=== PATIENT | male | born 1940 | race Asian ===

== ENCOUNTER 2018-09-24 13:15 | Emergency (ER) | payer MEDICARE ==
[~2018-09-24] VITALS: Ht 160 cm; Wt 65.8 kg
--- NOTE | 2018-09-24 13:09 | NUR ---
ED Nurse Note: registration made aware to update the pt's information
[~2018-09-24 13:15] MED LIST: COZAAR100 MG ORAL; DiphenhydrAMINE 50mg/ml Inj IVP ONE; METFORMIN HCL1000 M2 ORAL; Solu-MEDROL 125mg Inj IVP ONE; UNOBMED
--- NOTE | 2018-09-24 13:15 | Emergency Room Report ---
History of Present Illness General Chief Complaint: Allergic Reaction Source: Family Member, EMS Present Illness HPI Patient is a 78-year-old male who presented after increased generalized skin rash. Patient had taken oral Benadryl as well as oral Claritin prior to arrival. He had been given epinephrine by EMS. Patient had previous allergic reactions in the past. He was noted to have increased itchiness to the skin. Patient was noted to have diffuse hives. Allergies: Coded Allergies: Common Rubén Grass (Verified Allergy, Severe, RASH/Shortness of Breath, ) Patient History Past Medical History: see triage record Reviewed Nursing Documentation: PMH: Agreed; PSxH: Agreed Nursing Documentation-PMH Past Medical History: No History, Except For Hx Hypertension: Yes Hx Diabetes: Yes Review of Systems All Other Systems: negative except mentioned in HPI Physical Exam Vital Signs Date Time Temp Pulse Resp B/P (MAP) Pulse Ox O2 Delivery O2 Flow Rate FiO2 09/24/18 13:02 97.2 88 18 111/76 100 Venturi Mask 6.0 Sp02 EP Interpretation: reviewed, normal General Appearance: normal inspection, well appearing, alert Head: atraumatic ENT: normal ENT inspection, hearing grossly normal, normal voice Neck: normal inspection, full range of motion, supple, no bony tend Respiratory: normal inspection, lungs clear, normal breath sounds, no respiratory distress, no retraction, no wheezing Cardiovascular #1: regular rate, rhythm, no edema Gastrointestinal: normal inspection, normal bowel sounds, non tender, soft, no guarding, no hernia Genitourinary: no CVA tenderness Musculoskeletal: normal inspection, back normal, normal range of motion Neurologic: normal inspection, alert, responsive, speech normal Psychiatric: normal inspection, judgement/insight normal, mood/affect normal Skin: other - generalized urticarial rash Medical Decision Making Diagnostic Impression: Primary Impression: Allergic reaction ER Course Patient presented for skin rash. Differential diagnosis includes is not limited to allergic reaction, anaphylaxis, erythema multiforme among others. Patient was noted to have recent dose of epinephrine given by EMS. Patient was given IV Benadryl as well as Solu-Medrol.Patient was noted to have a recent dose of epinephrine. Patient was noted to have improvement in his rash.Patient was endorsed to Dr. Chiang pending further monitoring for possible rebound from allergic reaction. Patient was noted to have marked improvement I anticipate the patient be discharged as the patient's rash and symptoms have improved. EKG Diagnostic Results Rate: normal Rhythm: NSR ST Segments: no acute changes Last Vital Signs Date Time Temp Pulse Resp B/P (MAP) Pulse Ox O2 Delivery O2 Flow Rate FiO2 09/24/18 13:02 97.2 88 18 111/76 100 Venturi Mask 6.0 Status: improved Disposition: HOME, SELF-CARE Condition: Stable Scripts Epinephrine (Epipen 2-Hardy) 0.3 Mg/0.3 Ml Auto.injct 0.3 MG IM ONCE, #2 EA Prov: Franklyn Chiang MD 09/24/18 Diphenhydramine Hcl* (DIPHENHYDRAMINE HCL*) 25 Mg Capsule 25 MG ORAL Q6H PRN for Itching for 5 Days, #30 CAP 0 Refills Prov: Franklyn Chiang MD 09/24/18 Prednisone* (PREDNISONE*) 20 Mg Tablet 40 MG ORAL DAILY, #10 TAB Prov: Franklyn Chiang MD 09/24/18 Raymond Chavira MD Sep 24, 2018 13:14
[2018-09-24] MEDS ORDERED: Solu-MEDROL 125mg Inj ONE (13:25)
[2018-09-24] MEDS ORDERED: DiphenhydrAMINE 50mg/ml Inj ONE (13:25)
--- NOTE | 2018-09-24 13:36 | NUR ---
ED Nurse Note: Pt. brought in by [facility] from home due to ALOC and hives that developed after eating ham and cheese sandwhich 20min prior to [facility] arrival. 0.5 epi and albuteral 5mg given by EMS. Pt. has rashes noted all over his body. Pt. is verbally responsive upon arrival. Pt. attached to threat monitoring analyst for continouos monitoring. and son at the bedside Addendum: 09/24/18 at 1339 by [facility] ED Nurse Note: pt. came in with 1L of KAYLYNN
[2018-09-24] MEDS ORDERED: ALLOPURINOL100 M1 ORAL (14:00)
[2018-09-24] MEDS ORDERED: GLIPIZIDE10 MG PO (14:00)
[2018-09-24] MEDS ORDERED: CLOPIDOGREL75 MG ORAL (14:00)
[2018-09-24] MEDS ORDERED: METOPROLOL TART50 M1 ORAL (14:00)
[2018-09-24] MEDS ORDERED: Sodium Chloride 500ML 500 ML IV ONE (14:45)
[2018-09-24 15:00] VITALS: BP 123/47
[2018-09-24] MEDS ORDERED: DIPHENHYDRAMINE25 M1 ORAL (15:20)
[2018-09-24] MEDS ORDERED: EPIPEN 2-P0.3 MG/0.3 IM (15:20)
[2018-09-24] MEDS ORDERED: PREDNISONE20 MG ORAL (15:20)
[2018-09-24 15:39] VITALS: BP 123/43
--- NOTE | 2018-09-24 15:40 | NUR ---
ED Nurse Note: PT LAYING PEACEFULLY IN BED IN NAD. AOX4. PRESCRIPTIONS AND DISCHARGE PAPERWORK EXPLAINED TO PT. PT VERBALIZES UNDERSTANDING AND ALL QUESTIONS WERE ANSWERED. PRESCRIPTIONS AND DISCHARGE PAPERWORK GIVEN TO PT, IV AND ID WRISTBAND REMOVED. PT WALKED OUT OF ER WITH STEADY GAIT AND ALL BELONGINGS.
== END 2018-09-24 15:41 | disposition home or self-care (01) ==
LOC: EDBD 13:15 → EMR 14:24
DX: T78.40XA Allergy, unspecified, initial encounter (principal); X58.XXXA Exposure to other specified factors, initial encounter; R21 Rash and other nonspecific skin eruption; I10 Essential (primary) hypertension; E11.9 Type 2 diabetes mellitus without complications
CPT/HCPCS: 96374; 96375; 99284; J1200; J2930; S0028